=== PATIENT | female | born 1955 | race American Indian/Alaskan Native ===

== ENCOUNTER 2017-04-20 11:39 | Emergency (ER) | payer MEDICAID, MEDICARE ==
[2017-04-20 12:34] VITALS: BP 117/64
--- NOTE | 2017-04-20 12:37 | Emergency Department Report ---
ED ENT HPI - General Chief complaint: Dental/Oral Stated complaint: TOOTHACHE Time Seen by Provider: 04/20/17 12:30 Source: patient Mode of arrival: Ambulatory Limitations: No Limitations - History of Present Illness Initial comments: PT c/o L upper tooth pain. Pt states it hurts for two days. Pt states it hurts if any thing touches it. PT states she has no medication to take. PT states she is trying to follow up with [facility] complaint: tooth pain -: Gradual, week(s) (2) 1 - pain, tooth is gold colored Severity: severe Severity scale (0 -10): 10 Quality: constant Consistency: constant Worsens with: eating, other (palpation) Context- Dental: history of dental caries, poor dental care Associated Symptoms: gum swelling. denies: fever, toothache, sore throat - Related Data Home Medications Medication Instructions Recorded Confirmed Last Taken Albuterol Sulfate [Ventolin HFA] 2 puff IH Q4H PRN 06/13/13 06/13/13 Unknown Fluconazole [Diflucan] 50 mg PO QDAY 06/13/13 06/13/13 Unknown Gabapentin [Gralise] 1 each PO 06/13/13 06/13/13 Unknown Insulin Glargine,Hum.rec.anlog 100 unit SQ 06/13/13 06/13/13 Unknown [Lantus Solostar] Insulin Lispro [Humalog] 100 unit SQ 06/13/13 06/13/13 Unknown Lurasidone HCl [Latuda] 40 mg PO QDAY 06/13/13 06/13/13 Unknown Pregabalin [Lyrica] 100 mg PO 06/13/13 06/13/13 Unknown Sennosides/Docusate Sodium 1 each PO 06/13/13 06/13/13 Unknown [Doc-Q-Lax Tablet] Simvastatin 20 mg PO QHS 06/13/13 06/13/13 Unknown fluPHENAZine HCL [Prolixin] 5 mg PO QDAY 06/13/13 06/13/13 Unknown Previous Rx's Medication Instructions Recorded Last Taken Type Ibuprofen [Motrin 600 MG tab] 600 mg PO Q8H PRN #30 tablet 06/13/13 Unknown Rx Acetaminophen/Codeine [Tylenol #3] 1 tab PO Q6H PRN #8 tab 04/20/17 Unknown Rx Amoxicillin 500 mg PO BID #20 capsule 04/20/17 Unknown Rx Allergies Allergy/AdvReac Type Severity Reaction Status Date / Time haloperidol [From Haldol] Allergy Hives Verified 11/17/14 12:26 haloperidol lactate Allergy Hives Verified 11/17/14 12:26 [From Haldol] latex Allergy Hives Verified 11/17/14 12:26 ED Dental HPI - General Stated complaint: TOOTHACHE Time Seen by Provider: 04/20/17 12:30 - Related Data Home Medications Medication Instructions Recorded Confirmed Last Taken Albuterol Sulfate [Ventolin HFA] 2 puff IH Q4H PRN 06/13/13 06/13/13 Unknown Fluconazole [Diflucan] 50 mg PO QDAY 06/13/13 06/13/13 Unknown Gabapentin [Gralise] 1 each PO 06/13/13 06/13/13 Unknown Insulin Glargine,Hum.rec.anlog 100 unit SQ 06/13/13 06/13/13 Unknown [Lantus Solostar] Insulin Lispro [Humalog] 100 unit SQ 06/13/13 06/13/13 Unknown Lurasidone HCl [Latuda] 40 mg PO QDAY 06/13/13 06/13/13 Unknown Pregabalin [Lyrica] 100 mg PO 06/13/13 06/13/13 Unknown Sennosides/Docusate Sodium 1 each PO 06/13/13 06/13/13 Unknown [Doc-Q-Lax Tablet] Simvastatin 20 mg PO QHS 06/13/13 06/13/13 Unknown fluPHENAZine HCL [Prolixin] 5 mg PO QDAY 06/13/13 06/13/13 Unknown Previous Rx's Medication Instructions Recorded Last Taken Type Ibuprofen [Motrin 600 MG tab] 600 mg PO Q8H PRN #30 tablet 06/13/13 Unknown Rx Acetaminophen/Codeine [Tylenol #3] 1 tab PO Q6H PRN #8 tab 04/20/17 Unknown Rx Amoxicillin 500 mg PO BID #20 capsule 04/20/17 Unknown Rx Allergies Allergy/AdvReac Type Severity Reaction Status Date / Time haloperidol [From Haldol] Allergy Hives Verified 11/17/14 12:26 haloperidol lactate Allergy Hives Verified 11/17/14 12:26 [From Haldol] latex Allergy Hives Verified 11/17/14 12:26 ED Review of Systems ROS: Stated complaint: TOOTHACHE Other details as noted in HPI Comment: All other systems reviewed and negative Constitutional: denies: chills, fever ENT: as per HPI Gastrointestinal: other (pt states she does not have hep c ) Skin: denies: change in color Neurological: headache (due to tooth pain ) ED Past Medical Hx - Past Medical History Hx Diabetes: Yes Hx Psychiatric Treatment: Yes (BIPOLAR, SCHIZOEFFECTIVE DISORDER) Additional medical history: Patient's past medical history of narcotic and crack cocaine abuse. NEUROPATHY - Surgical History Hx Appendectomy: Yes Additional Surgical History: TUBAL LIGATION. LAPROSCOPY - Social History Smoking Status: Current Every Day Smoker Substance Use Type: Alcohol - Medications Home Medications: Home Medications Medication Instructions Recorded Confirmed Last Taken Type Albuterol Sulfate [Ventolin HFA] 2 puff IH Q4H PRN 06/13/13 06/13/13 Unknown History Fluconazole [Diflucan] 50 mg PO QDAY 06/13/13 06/13/13 Unknown History Gabapentin [Gralise] 1 each PO 06/13/13 06/13/13 Unknown History Ibuprofen [Motrin 600 MG tab] 600 mg PO Q8H PRN #30 tablet 06/13/13 Unknown Rx Insulin Glargine,Hum.rec.anlog 100 unit SQ 06/13/13 06/13/13 Unknown History [Lantus Solostar] Insulin Lispro [Humalog] 100 unit SQ 06/13/13 06/13/13 Unknown History Lurasidone HCl [Latuda] 40 mg PO QDAY 06/13/13 06/13/13 Unknown History Pregabalin [Lyrica] 100 mg PO 06/13/13 06/13/13 Unknown History Sennosides/Docusate Sodium 1 each PO 06/13/13 06/13/13 Unknown History [Doc-Q-Lax Tablet] Simvastatin 20 mg PO QHS 06/13/13 06/13/13 Unknown History fluPHENAZine HCL [Prolixin] 5 mg PO QDAY 10/22/13 10/22/13 Unknown History Acetaminophen/Codeine [Tylenol #3] 1 tab PO Q6H PRN #8 tab 04/20/17 Unknown Rx Amoxicillin 500 mg PO BID #20 capsule 04/20/17 Unknown Rx ED Physical Exam - General Limitations: No Limitations General appearance: alert, in no apparent distress, other (thin) - Head Head exam: Present: atraumatic, normocephalic, normal inspection - Eye Eye exam: Present: normal appearance, PERRL, EOMI. Absent: conjunctival injection - ENT ENT exam: Present: normal orophraynx, mucous membranes moist, TM's normal bilaterally - Expanded ENT Exam Expanded Mouth exam: Absent: drooling, trismus Teeth exam: Present: dental caries, dental tenderness #. Absent: gingival enlargement 1 - Dental Tenderness (teeth 9 and 10 ttp, tooth 9 with gold covering.) Throat exam: Positive: normal inspection - Neck Neck exam: Present: normal inspection, full ROM. Absent: lymphadenopathy - Respiratory Respiratory exam: Absent: respiratory distress, chest wall tenderness - Cardiovascular Cardiovascular Exam: Present: normal rhythm, tachycardia (mildly ) - Extremities Exam Extremities exam: Present: normal inspection, full ROM - Back Exam Back exam: Present: normal inspection, full ROM. Absent: tenderness, CVA tenderness (R), CVA tenderness (L) - Neurological Exam Neurological exam: Present: alert, oriented X3, normal gait - Expanded Neurological Exam Expanded Patient oriented to: Present: person, place, time Speech: Present: fluid speech Best Eye Response (Vista): (4) open spontaneously Best Motor Response (Leigh): (6) obeys commands Best Verbal Response (Leigh): (5) oriented Vista Total: 15 - Psychiatric Psychiatric exam: Present: normal affect, normal mood - Skin Skin exam: Present: warm, dry, intact ED Course - Reevaluation(s) Reevaluation #1: 04/20/17 12:37 PT aware of dx and plan of care. PT has no questions at this time. PT aware she will need to follow up with [facility] - Pulse Oximetry Interpretation Digit-Finger Initial Pulse Oximetry Readin Actions Taken: none ED Medical Decision Making - Differential Diagnosis toothache, dental abscess Critical Care Time: No Critical care attestation.: If time is entered above; I have spent that time in minutes in the direct care of this critically ill patient, excluding procedure time. ED Disposition Clinical Impression: Toothache, Dental decay Disposition: TO HOME OR SELFCARE Is pt being admited?: No Does the pt Need Aspirin: No Condition: Stable Instructions: Dental Caries (ED), Toothache (ED) Additional Instructions: Finish all your antibiotics Follow up with Dentist in 3-[address] or drink alcohol after taking Tylenol #3 Prescriptions: Acetaminophen/Codeine [Tylenol #3] 1 tab PO Q6H PRN #8 tab PRN Reason: Pain , Severe (7-10) Amoxicillin 500 mg PO BID #20 capsule Referrals: [facility] [Outside] - 3-5 Days Time of Disposition: 12:40
== END 2017-04-20 12:59 | disposition home or self-care (01) ==
LOC: ED 11:39
DX: K02.9 Dental caries, unspecified (principal); K08.89 Other specified disorders of teeth and supporting structures; E11.9 Type 2 diabetes mellitus without complications; F31.9 Bipolar disorder, unspecified; F25.9 Schizoaffective disorder, unspecified; F17.200 Nicotine dependence, unspecified, uncomplicated; Z79.4 Long term (current) use of insulin; Z91.040 Latex allergy status; Z88.8 Allergy status to other drugs, medicaments and biological substances; Z79.01 Long term (current) use of anticoagulants
CPT/HCPCS: 99282

== ENCOUNTER 2019-04-30 19:21 | Emergency (ER) | payer MEDICARE ==
[2019-04-30 19:26] VITALS: BP 122/66
[2019-04-30] MEDS ORDERED: DELTASONE PO ONE (19:48)
--- NOTE | 2019-04-30 20:05 | Emergency Department Report ---
ED Rash HPI - HPI Chief Complaint: Skin Rash Stated Complaint: PARASITE INFESTATION Time Seen by Provider: 04/30/19 19:46 Duration: 3 Days Location: Back, Upper Extremities Suspected Cause: Insect Rash Symptoms: Yes Itching, No Facial Swelling, No Tongue/Oral Swelling, No Breathing Difficulties, No Choking Sensation, No Wheezing/Dyspnea, No Peeling, No Blistering, No Fever, No Lightheaded, No Malaise, No Myalgias Severity: mild Other History: 63 y o f presents with exposure to scabies and started itching x 3 days that is worse at night ED Review of Systems ROS: Stated complaint: PARASITE INFESTATION Other details as noted in HPI Comment: All other systems reviewed and negative ED Past Medical Hx - Past Medical History Hx Hypertension: Yes Hx Heart Attack/AMI: Yes (2006) Hx Diabetes: Yes Hx Psychiatric Treatment: Yes (BIPOLAR, SCHIZOEFFECTIVE DISORDER) Hx COPD: Yes Additional medical history: Patient's past medical history of narcotic and crack cocaine abuse. NEUROPATHY - Surgical History Hx Appendectomy: Yes Additional Surgical History: TUBAL LIGATION. LAPROSCOPY - Social History Smoking Status: Current Every Day Smoker Substance Use Type: Alcohol, Cocaine, Marijuana, Methamphetamines - Medications Home Medications: Home Medications Medication Instructions Recorded Confirmed Last Taken Type Gabapentin [Gralise Starter Kit] 300 mg PO TID 06/13/13 09/15/17 09/14/17 History Pregabalin [Lyrica] 100 mg PO PRN 06/13/13 09/15/17 Unknown History Insulin NPH Human Isophane 5 unit SQ HS 09/15/17 09/15/17 09/14/17 History [Novolin N] Aspirin EC 325 mg PO QDAY tablet 09/17/17 Unknown Rx risperiDONE [RisperDAL] 0.5 mg PO QHS tablet 09/17/17 Unknown Rx Permethrin 5% [Acticin 5% CREAM] 1 applicatio TP ONCE #1 tube 04/30/19 Unknown Rx hydrOXYzine HCL [Atarax] 10 mg PO Q6HR #20 tablet 04/30/19 Unknown Rx Rash Exam - Exam General: Vital signs noted. No distress. Alert and acting appropriately. HEENT: No Periorbital Edema, No Conjuctival Injection, No Chemosis, No Perioral Edema, No Tongue Edema, No Uvular Edema, No Compromised Airway, No Drooling Lungs: Yes Good Air Exchange (Normal Breath Sounds), No Wheezes, No Ronchi, No Stridor, No Cough, No Labored Respirations, No Retractions, No Use of Accessory Muscles, No Other Abnormal Lung Sounds Heart: Yes Regular, No Murmur Skin: Yes Urticarial Rash, Yes Excoriations, No Maculopapular Rash, No Morbilliform rash, No Bulla(e), No Weeping, No Tenderness, No Erythema, No Edema, No Encrustations, No Other Other: Positive: Abdomen Normal, Neurologic Normal, Musculoskeletal Normal ED Course Vital Signs 04/30/19 04/30/19 19:25 19:28 Temperature 97.9 F 97.9 F Pulse Rate 90 90 Respiratory 18 20 Rate Blood Pressure 122/66 Blood Pressure 122/66 [Right] O2 Sat by Pulse 98 98 Oximetry ED Medical Decision Making - Medical Decision Making 63 y o female who presents with exposure to scabies and itching rash Pt received instructions n medication, there was no acute distress Discussed f/u with pcp VSS. pt understands instructions . Critical care attestation.: If time is entered above; I have spent that time in minutes in the direct care of this critically ill patient, excluding procedure time. ED Disposition Clinical Impression: Exposure to scabies Disposition: DC-01 TO HOME OR SELFCARE Is pt being admited?: No Does the pt Need Aspirin: No Condition: Stable Instructions: Scabies (ED) Additional Instructions: take and use medications as prescribed follow up with pcp Prescriptions: Permethrin 5% [Acticin 5% CREAM] 1 applicatio TP ONCE #1 tube hydrOXYzine HCL [Atarax] 10 mg PO Q6HR #20 tablet Referrals: KERRY BENZ MD [Primary Care Provider] - 3-5 Days [facility] [Outside] - 3-5 Days [facility] [Outside] - 3-5 Days Forms: Accompanied Note, Work/School Release Form(ED) Time of Disposition: 20:05
== END 2019-04-30 20:14 | disposition home or self-care (01) ==
LOC: ED 19:21
DX: R21 Rash and other nonspecific skin eruption (principal); L29.9 Pruritus, unspecified; I10 Essential (primary) hypertension; I25.2 Old myocardial infarction; E11.9 Type 2 diabetes mellitus without complications; F25.0 Schizoaffective disorder, bipolar type; F17.200 Nicotine dependence, unspecified, uncomplicated; F12.10 Cannabis abuse, uncomplicated; F15.10 Other stimulant abuse, uncomplicated; Z20.7 Contact with and (suspected) exposure to pediculosis, acariasis and other infestations; Z88.8 Allergy status to other drugs, medicaments and biological substances; Z90.49 Acquired absence of other specified parts of digestive tract; Z98.51 Tubal ligation status; Z79.4 Long term (current) use of insulin; Z79.82 Long term (current) use of aspirin; Z79.899 Other long term (current) drug therapy; Z91.040 Latex allergy status; Z88.0 Allergy status to penicillin
CPT/HCPCS: 99282; J7512

== ENCOUNTER 2020-04-10 21:15 | Emergency (ER) | payer MEDICARE ==
[2020-04-11 00:36] LABS: Alanine Aminotransferase 8 units/L (7-56); Albumin 4.4 g/dL (3.9-5); Blood Urea Nitrogen 16 mg/dL (7-17); Calcium 10.1 mg/dL (8.4-10.2); Hemolysis Index 10
[2020-04-11 00:41] LABS: Basophils # (Auto) 0.1 K/mm3 (0.0-0.1); Basophils % (Auto) 1.1 % (0.0-1.8); Eosinophils # (Auto) 0.2 K/mm3 (0.0-0.4); Eosinophils % (Auto) 2.4 % (0.0-4.3); Hematocrit 39.5 % (30.3-42.9); Hemoglobin 13.2 gm/dl (10.1-14.3); Lymphocytes # (Auto) 4.1 K/mm3 (1.2-5.4); Lymphocytes % (Auto) 47.5 % (13.4-35.0); Mean Corpuscular HGB Conc 33 % (30-34); Mean Corpuscular Volume 96 fl (79-97); Monocytes # (Auto) 0.7 K/mm3 (0.0-0.8); Monocytes % (Auto) 8.2 % (0.0-7.3); Platelet Count 168 K/mm3 (140-440); Red Blood Count 4.13 M/mm3 (3.65-5.03); Red Cell Distribution Width 14.5 % (13.2-15.2)
[2020-04-11 01:08] LABS: BUN/Creatinine Ratio 23
[2020-04-11 08:49] LABS: Bilirubin,Urine NEG (Negative); Blood,Urine SM (Negative); Color,Urine Yellow (Yellow); Mucus,Urine 1+ /HPF; Protein,Urine <15 mg/dL mg/dL (Negative); Urobilinogen,Urine < 2.0 mg/dL (<2.0)
[2020-04-11] MEDS ORDERED: SODIUM CHLORIDE 0.9% 1000 ML 1,000 ML IV ONE (09:53)
[2020-04-11] MEDS ORDERED: levoFLOXacin 500 MG TAB PO ONE (09:53)
--- NOTE | 2020-04-11 10:04 | Emergency Department Report ---
HPI - General Chief Complaint: Abdominal Pain Time Seen by Provider: 04/11/20 09:44 - HPI HPI: Room 5 The patient is a 64-year-old female present with a chief complaint of right flank pain. Patient states she is had this pain for the past 2 to 3 days and describes it as sharp in nature. Patient denies dysuria or hematuria but admits to frequency in triage. Patient denies history of fever. Patient admits to nausea but denies vomiting ED Past Medical Hx - Past Medical History Previous Medical History?: Yes Hx Hypertension: Yes Hx Heart Attack/AMI: Yes (2006) Hx Diabetes: Yes Hx Psychiatric Treatment: Yes (BIPOLAR, SCHIZOEFFECTIVE DISORDER) Hx COPD: Yes Additional medical history: Patient's past medical history of narcotic and crack cocaine abuse. NEUROPATHY - Surgical History Past Surgical History?: Yes Hx Appendectomy: Yes Additional Surgical History: TUBAL LIGATION. LAPROSCOPY - Family History Family history: no significant - Social History Smoking Status: Current Every Day Smoker Substance Use Type: Cocaine (Last used 1 week ago) - Medications Home Medications: Home Medications Medication Instructions Recorded Confirmed Last Taken Type Gabapentin [Gralise Starter Kit] 300 mg PO TID 06/13/13 04/11/20 09/14/17 History Pregabalin [Lyrica] 100 mg PO PRN 06/13/13 04/11/20 Unknown History Ciprofloxacin HCl [Ciprofloxacin 500 mg PO Q12HR #14 tab 04/11/20 Unknown Rx TAB] Ibuprofen [Motrin 800 MG tab] 800 mg PO Q8HR PRN #20 tablet 04/11/20 Unknown Rx Insulin Detemir (Nf) [Levemir 20 unit SUB-Q DAILY 04/11/20 04/11/20 1 Day Ago History Flextouch (Nf)] ~04/10/20 Lispro Insulin [HumaLOG] See Protocol SC TID 04/11/20 04/11/20 Unknown History Lurasidone HCl [Latuda] 40 mg PO DAILY 04/11/20 04/11/20 Unknown History traMADoL [Ultram] 50 mg PO Q6HR PRN #10 tablet 04/11/20 Unknown Rx ED Review of Systems ROS: Stated complaint: RT SIDE PAIN Other details as noted in HPI Constitutional: no symptoms reported Respiratory: no symptoms reported Endocrine: no symptoms reported Gastrointestinal: abdominal pain, nausea. denies: vomiting Genitourinary: denies: dysuria, hematuria Physical Exam - Physical Exam Vital Signs: Vital Signs 04/10/20 04/11/20 04/11/20 23:16 08:15 08:27 Temperature 98.6 F Pulse Rate 92 H 83 Respiratory 18 20 18 Rate Blood Pressure 141/57 Blood Pressure [Left] O2 Sat by Pulse 100 100 Oximetry 04/11/20 08:49 Temperature Pulse Rate 82 Respiratory 18 Rate Blood Pressure Blood Pressure 96/42 [Left] O2 Sat by Pulse 100 Oximetry Physical Exam: GENERAL: The patient is well-developed well-nourished female lying on stretcher not appearing to be in acute distress. [] HEENT: Normocephalic. Atraumatic. Extraocular motions are intact. Patient has moist mucous membranes. NECK: Supple. Trachea midline CHEST/LUNGS: Clear to auscultation. There is no respiratory distress noted. HEART/CARDIOVASCULAR: Regular. There is no tachycardia. There is no gallop rub or murmur. ABDOMEN: Abdomen is soft, with tenderness to palpation in the right upper quadrant and left upper quadrant. Patient has normal bowel sounds. There is no abdominal distention. SKIN: There is no rash. There is no edema. There is no diaphoresis. NEURO: The patient is awake, alert, and oriented. The patient is cooperative. The patient has normal speech and gait. MUSCULOSKELETAL: There is right CVA tenderness. There is no evidence of acute injury. ED Course Vital Signs 04/10/20 04/11/20 04/11/20 23:16 08:15 08:27 Temperature 98.6 F Pulse Rate 92 H 83 Respiratory 18 20 18 Rate Blood Pressure 141/57 Blood Pressure [Left] O2 Sat by Pulse 100 100 Oximetry 04/11/20 08:49 Temperature Pulse Rate 82 Respiratory 18 Rate Blood Pressure Blood Pressure 96/42 [Left] O2 Sat by Pulse 100 Oximetry - Reevaluation(s) Reevaluation #1: 04/11/20 12:42 Accu-Chek 205 ED Medical Decision Making - Lab Data Result diagrams: 04/11/20 Unknown 04/10/20 23:52 Laboratory Tests 04/10/20 04/11/20 04/11/20 23:52 08:25 09:55 WBC RBC Hgb Hct MCV MCH MCHC RDW Plt Count Lymph % (Auto) [place] % (Auto) Eos % (Auto) Baso % (Auto) Lymph # [place] # Eos # Baso # Seg Neutrophils % Seg Neutrophils # Sodium 141 Potassium 4.2 Chloride 100.1 Carbon Dioxide 28 Anion Gap 17 BUN 16 Creatinine 0.7 Estimated GFR > 60 BUN/Creatinine Ratio 23 Glucose 275 H POC Glucose < 40 L Calcium 10.1 Total Bilirubin 0.30 AST 14 ALT 8 Alkaline Phosphatase 96 Total Protein 8.2 Albumin 4.4 Albumin/Globulin Ratio 1.2 Urine Color Yellow Urine Turbidity Slightly-cloudy Urine pH 5.0 Ur Specific [place] 1.023 Urine Protein <15 mg/dl Urine Glucose (UA) >=500 Urine Ketones Neg Urine Blood Sm Urine Nitrite Neg Urine Bilirubin Neg Urine Urobilinogen < 2.0 Ur Leukocyte Esterase Lg Urine WBC (Auto) 16.0 H Urine RBC (Auto) 13.0 U Epithel Cells (Auto) 20.0 H Urine Mucus 1+ 04/11/20 04/11/20 10:03 Unknown WBC 8.7 RBC 4.13 Hgb 13.2 Hct 39.5 MCV 96 MCH 32 MCHC 33 RDW 14.5 Plt Count 168 Lymph % (Auto) 47.5 H [place] % (Auto) 8.2 H Eos % (Auto) 2.4 Baso % (Auto) 1.1 Lymph # 4.1 [place] # 0.7 Eos # 0.2 Baso # 0.1 Seg Neutrophils % 40.8 Seg Neutrophils # 3.5 Sodium Potassium Chloride Carbon Dioxide Anion Gap BUN Creatinine Estimated GFR BUN/Creatinine Ratio Glucose POC Glucose < 40 L Calcium Total Bilirubin AST ALT Alkaline Phosphatase Total Protein Albumin Albumin/Globulin Ratio Urine Color Urine Turbidity Urine pH Ur Specific [place] Urine Protein Urine Glucose (UA) Urine Ketones Urine Blood Urine Nitrite Urine Bilirubin Urine Urobilinogen Ur Leukocyte Esterase Urine WBC (Auto) Urine RBC (Auto) U Epithel Cells (Auto) Urine Mucus - Radiology Data Radiology results: report reviewed (CT abdomen pelvis), image reviewed (CT abdomen pelvis) [facility] [address] [place] [address] Cat Scan Report Signed Patient: ELIZA BERG MR#: [id number] : 1955 Acct:[id number] Age/Sex: 64 / F ADM Date: 04/10/20 Loc: ED Attending Dr: Ordering Physician: ANDREW WILKINSON MD Date of Service: 04/11/20 Procedure(s): CT abdomen pelvis w con Accession Number(s): [id number] cc: ANDREW WILKINSON MD CT ABDOMEN AND PELVIS WITH CONTRAST HISTORY: Right flank pain COMPARISON: None. TECHNIQUE: Axial CT images were obtained through the abdomen and pelvis after 100 cc of Omnipaque 300 intravenously. Sagittal and coronal reformatted images. All CT scans at this location are per formed using CT dose reduction for ALARA by means of automated exposure control. FINDINGS: CT ABDOMEN: Lung Bases: Clear. Liver: No significant abnormality. Biliary: No significant abnormality. Spleen: No significant abnormality. Unenlarged. Pancrea s: No significant abnormality. Adrenals: No significant abnormality. Kidneys: No significant abnormality. Lymphatics: No lymphadenopathy. Vasculature: No significant abnormality. Bowel/Peritoneum: There is moderate to large fecal material throughout the length of the colon. No evidence for bowel obstruction or focal inflammation. The appendix is not confidently identified. No free fluid or free air. CT PELVIS: : The uterus, adnexa and bladder are unremarkable. Osseous Structures: Mild lumbar spondylosis. No acute fracture or bony lesion. Additional Findings: None IMPRESSION: No acute process is identified. Constipation. No clear explanation for right flank pain. Signer Name: Willard Ling Jr, MD Signed: 04/11/2020 11:20 AM Workstation Name: [id number] Transcribed By: TTR Dictated By: WILLARD LING JR, MD Electronically Authenticated By: WILLARD LING JR, MD Signed Date/Time: 04/11/20 1120 DD/ 1116 TD/TT: - Differential Diagnosis Pyelonephritis, UTI, cholelithiasis, peptic ulcer disease Critical care attestation.: If time is entered above; I have spent that time in minutes in the direct care of this critically ill patient, excluding procedure time. ED Disposition Clinical Impression: UTI (urinary tract infection), Right flank pain Disposition: DC-01 TO HOME OR SELFCARE Is pt being admited?: No Does the pt Need Aspirin: No Condition: Stable Instructions: Abdominal Pain (ED) Additional Instructions: Return to the emergency department should you develop worsening symptoms, inability to tolerate food or liquids, high fever or any other concerns Prescriptions: Ciprofloxacin HCl [Ciprofloxacin TAB] 500 mg PO Q12HR #14 tab Ibuprofen [Motrin 800 MG tab] 800 mg PO Q8HR PRN #20 tablet PRN Reason: Pain, Moderate (4-6) traMADoL [Ultram] 50 mg PO Q6HR PRN #10 tablet PRN Reason: Pain Referrals: PRIMARY CARE, [Primary Care Provider] - 3-5 Days Time of Disposition: 12:43
--- NOTE | 2020-04-11 11:25 | Cat Scan Report ---
CT ABDOMEN AND PELVIS WITH CONTRAST HISTORY: Right flank pain COMPARISON: None. TECHNIQUE: Axial CT images were obtained through the abdomen and pelvis after 100 cc of Omnipaque 300 intravenously. Sagittal and coronal reformatted images. All CT scans at this location are performed using CT dose reduction for ALARA by means of automated exposure control. FINDINGS: CT ABDOMEN: Lung Bases: Clear. Liver: No significant abnormality. Biliary: No significant abnormality. Spleen: No significant abnormality. Unenlarged. Pancreas: No significant abnormality. Adrenals: No significant abnormality. Kidneys: No significant abnormality. Lymphatics: No lymphadenopathy. Vasculature: No significant abnormality. Bowel/Peritoneum: There is moderate to large fecal material throughout the length of the colon. No ev idence for bowel obstruction or focal inflammation. The appendix is not confidently identified. No fr ee fluid or free air. CT PELVIS: : The uterus, adnexa and bladder are unremarkable. Osseous Structures: Mild lumbar spondylosis. No acute fracture or bony lesion. Additional Findings: None IMPRESSION: No acute process is identified. Constipation. No clear explanation for right flank pain. Signer Name: Willard Engel Jr, MD Signed: 04/11/2020 11:20 AM Workstation Name: [id number]
[2020-04-11] MEDS ORDERED: DEXTROSE 50% IN WATER (25GM) 50 ML SYRINGE IV ONE (11:34)
[2020-04-11 12:36] VITALS: BP 126/76
== END 2020-04-11 12:50 | disposition home or self-care (01) ==
LOC: ED 21:15
DX: I10 Essential (primary) hypertension (principal); I25.2 Old myocardial infarction; E11.9 Type 2 diabetes mellitus without complications; F25.0 Schizoaffective disorder, bipolar type; J44.9 Chronic obstructive pulmonary disease, unspecified; F17.200 Nicotine dependence, unspecified, uncomplicated; F14.10 Cocaine abuse, uncomplicated; Z98.51 Tubal ligation status; Z90.49 Acquired absence of other specified parts of digestive tract; Z79.4 Long term (current) use of insulin; Z79.899 Other long term (current) drug therapy; Z91.040 Latex allergy status; Z88.0 Allergy status to penicillin; Z88.8 Allergy status to other drugs, medicaments and biological substances
CPT/HCPCS: 36415; 74177; 80053; 81001; 82962; 85025; 87086; 96361; 96374; 99285; J7030; Q9967; 96360